=== PATIENT | female | born 1985 | race Caucasian/White ===

== ENCOUNTER 2018-04-05 00:43 | Inpatient (IN) | payer BC ==
[~2018-04-05] VITALS: Ht 165.1 cm; Wt 68.6 kg
[2018-04-05] VITALS (32 sets, daily range): BP systolic 94–146; BP diastolic 50–75; PULSE 61–100; TEMP 97.5–98.5
[~2018-04-05 00:43] MED LIST: MOTRIN 600600 MG/TAB PO; NO HOME MEDICATIONS; PERCOCET 325 MG1 TA2 PO
[2018-04-05 01:39] LABS: BASO % 0.4 % (0.0-2.0); EOS # 0.1 (0.0-0.7); EOS % 0.6 % (0-4.0); GRAN # 6.4 (1.4-6.5); GRAN % 63.3 % (42.2-75.2); HEMATOCRIT 40.8 % (37.0-47.0); LYMPH # 2.6 (1.2-3.4); MEAN CELL VOLUME 82 fl (80.0-100.0); MEAN CORPUSCULAR HEMOGLOBIN 26 pg (27.0-31.0); MEAN CORPUSCULAR HGB CONC 32 g/dl (33.0-37.0); MEAN PLATELET VOLUME 11.1 fl (7.4-10.4); MONO # 0.9 (0.1-0.6); MONO % 9.1 % (1.7-9.3); PLATELET COUNT 185 K/mm3 (130-400); RED BLOOD COUNT 4.97 M/mm3 (4.10-5.30); REDCELL DISTRIBUTION WIDTH-CV 14.1 % (11.5-14.5)
[2018-04-05] MEDS ORDERED: PRENATAL 191 CTB PO (05:27)
[2018-04-06] VITALS: BP 115/75; PULSE 71; TEMP 98.2
[2018-04-06 08:40] VITALS: BP 106/57; PULSE 80; TEMP 98.4
[2018-04-06 08:45] VITALS: BP 106/57; PULSE 68; TEMP 98.1
[2018-04-06] MEDS ORDERED: IBU800 M1 PO (08:58)
[2018-04-06] MEDS ORDERED: PERCOCET 325 MG1 TA2 PO (08:58)
== END 2018-04-06 14:40 | disposition home or self-care (01) | DRG 775 ==
LOC: LDRO 00:43 → LDR 01:25 → OB 10:30
PROVIDERS: Obstetrics & Gynecology
PROC: 10E0XZZ Delivery of Products of Conception, External Approach (ICD-10-PCS; principal; 2018-04-05)
PROC: 0UQMXZZ Repair Vulva, External Approach (ICD-10-PCS; 2018-04-05)
DX: O71.82 Other specified trauma to perineum and vulva (principal); Z3A.39 39 weeks gestation of pregnancy; Z37.0 Single live birth; Z22.330 Carrier of Group B streptococcus; O34.13 Maternal care for benign tumor of corpus uteri, third trimester
CPT/HCPCS: J2210; J2405; J2540; J2590; J2795; J7120